=== PATIENT | female | born 1955 | race Caucasian/White ===

== ENCOUNTER 2017-03-02 14:10 | Observation (INO) | payer MEDICAID ==
[~2017-03-02] VITALS: Ht 157.5 cm; Wt 88.6 kg
--- NOTE | ~2017-03-02 | HEMODYNAMI ---
PATIENT:FLORENCIA SCHULTZ MEDICAL RECORD: [id number] : 55 [id number] ADMISSION DATE: 03/02/17 Generatedon:03/03/201715:28 Patient name: FLORENCIA SCHULTZ Patient #: [id number] : 1955 Date of study: 03/03/2017 Page: Of Hemodynamic Procedure Report Patient Data Patient Demographics Procedure consent was obtained First Name: FLORENCIA Gender: Female Last Name: MARION : 1955 Middle Initial: NEGRA Age: 61 year(s) Patient #: [id number] Race: SSN: [id number] Additional ID: [id number] Contact details [address]: [address] [place] [address] State: [place] City: [place] Zip code: [address] Admission Admission Data Admission Date: 03/02/2017 Admission Time: 16:27 Arrival Date: 02/23/2017 Arrival Time: 16:27 Admit Source: Other Insurance Payor: Medicaid Room #: D.2115 Height (in.): 62 BSA: 1.89 (m2) Height (cm.): 157.48 BMI: 35.67 (kg/m2) Weight (lbs.): 195 Weight (kg.): 88.45 Lab Results Lab Result Date: 03/03/2017 Lab Result Time: 0:00 Biochemistry Name Units Result Min Max BUN mg/dl 14 --(--*-)-- 7 18 Creatinine mg/dl 1 --(--*-)-- 0.6 1.3 CBC Name Units Result Min Max Hemoglobin g/dl 11.9 *-(----)-- 13.5 17.5 Procedure Procedure Types Cath Procedure Diagnostic Procedure LHC LHC w/Coronaries Miscellaneous Procedures Moderate Sedation up to 30 minutes Procedure Description Procedure Date Procedure Date: 03/03/2017 Procedure Start Time: 15:10 Procedure End Time: 15:21 Procedure Staff Name Function Yang Matthew RT Scrub Ailin Clarke RN Nurse Hetal Ayala RT Monitor Romeo Barrios MD Performing Physician Procedure Data Cath Procedure Fluoroscopy Diagnostic fluoroscopy Total fluoroscopy Time: 1.2 time: 1.2 min min Diagnostic fluoroscopy Total fluoroscopy dose: 410 dose: 410 mGy mGy Contrast Material Contrast Material Type Amount (ml) Isovue 370 62 Entry Location Entry Primary Successful Side Size Upsize Upsize Entry Closure Succes sful Closure Location (Fr) 1 (Fr) 2 (Fr) Remarks Device Remarks Femoral Right 5 Fr Exoseal artery Estimated blood loss: 5 ml Diagnostic catheters Device Type Used For End Catheter Placement Cordis 5Fr JL 4.0 Left Coronary Catheter (MP) Angiography Cordis 5Fr 3DRC Catheter Right Coronary (MP) Angiography Cordis 5Fr Pigtail LV Angiography Catheter (MP) Procedure Complications No complications Procedure Medications Medication Administration Route Dosage Oxygen NC 2 l/min Lidocaine 2% added to field 20 Heparin Flush Bag added to field 2 bags (1000units/500ml NS) 0.9% NaCl I.V. 100 ml/hr Versed I.V. 1 mg Fentanyl I.V. 50 mcg Versed I.V. 1 mg Fentanyl I.V. 50 mcg Versed I.V. 1 mg Fentanyl I.V. 50 mcg Versed I.V. 1 mg Fentanyl I.V. 50 mcg Hemodynamics Rest BSA: 1.89 (m2) HGB: 11.9 (g/dl) O2 Consumption: Estimated: 174.59 (ml/min) O2 Co nsumption indexed: Estimated:92.38 (ml/min/m) Heart Rate: 64 (bpm) Pressure Samples Time Site Value (mmHg) Purpose Heart Use Rate(bpm) 15:17 LV 194/-7,37 Snapshot 95 Gradients Valve Time Site Site Mean SEP/DFP Peak To Heart Use 1 2 (mmHg) (sec/min) Peak Rate (mmHg) (bpm) Aortic 15:18 LV AO 96 Snapshots Pre Cath Intra NCS Post Cath Vital Signs Time Heart Resp SPO2 etCO2 IG7rfct NIBP (mmHg) Rhythm Pain Sedation Rate (ipm) (%) (mmHg) (mmHg) Status Level (bpm) 14:59:56 64 25 99 0 0 140/78(112) NSR 0 (11) 10(A) , No pain 15:04:10 67 24 96 0 0 124/70(101) NSR 0 (11) 10(A) , No pain 15:09:16 72 17 97 0 0 117/75(105) NSR 0 (11) 9(A) , No pain 15:13:21 88 17 93 0 0 130/93(110) NSR 0 (11) 9(A) , No pain 15:18:50 91 16 96 0 0 117/78(111) NSR 0 (11) 9(A) , No pain 15:27:46 91 17 96 0 0 124/79(0) NSR 0 (11) 10(A) , No pain Medications Time Medication Route Dose Verified Delivered Reason Notes Effe ctiveness by by 15:03:40 Oxygen NC 2 Romeo Buffie used for l/min DenisCordelia Clarke casino floor runner 15:03:48 Lidocaine 2% added 20ml Romeo Romeo for local to vial [facility] anesthetic field MD KRISHNAN 15:03:58 Heparin Flush added 2 Romeo Romeo used for Bag to bags [facility] procedure (1000units/500ml field MD KRISHNAN NS) 15:04:06 0.9% NaCl I.V. 100 Romeo Buffie Per ml/hr St. Cyrus Clarke RN physician 15:04:17 Versed I.V. 1 mg Romeo Buffie for DenisCordelia Clarke RN sedation 15:04:24 Fentanyl I.V. 50 Romeo Buffie for mcg DenisCordelia Clarke RN sedation 15:08:16 Versed I.V. 1 mg Romeo Buffie for DenisCyrus Clarke RN sedation 15:08:21 Fentanyl I.V. 50 Romeo Buffie for mcg GaltCyrus Clarke RN sedation 15:11:07 Versed I.V. 1 mg Romeo Buffie for Denis Clarke RN sedation 15:11:12 Fentanyl I.V. 50 Romeo Buffie for mcg DenisCyrus Clarke RN sedation 15:17:19 Versed I.V. 1 mg Romeo Buffie for DenisCyrus Clarke RN sedation 15:17:24 Fentanyl I.V. 50 Romeo Buffie for mcg GaltCyrus Clarke RN sedation Procedure Log Time Note 14:35:07 Diagnostic Cath Status : Elective 14:35:40 Admit Source: Other 14:35:55 Yang Castro RT(R) (CV) sent for patient. Start room use. 14:39:41 Time tracking: Regular hours 14:39:47 Plan of Care:Hemodynamics will remain stable., Cardiac rhythm will remain stable., Comfort level will be maintained., Respiratory function will remain adequate., Patient/ family verbilizes understanding of procedure., Procedure tolerated without complication., Recovers from procedure without complications.. 14:42:41 Informed consent obtained and on chart 14:43:39 Arrival Date: 02/23/2017 4:27:00 PM 14:43:45 Insurance Payor : Medicaid 14:45:32 Lab Result : Hemoglobin 11.9 g/dl 14:45:32 Lab Result : Creatinine 1 mg/dl 14:45:32 Lab Result : BUN 14 mg/dl 14:48:38 Patient received from Med II to CCL 1 Alert and oriented. Tansferred to table in Supine position. 14:48:39 Warm blankets applied, and tamara hugger turned on for patient comfort. 14:48:40 Correct patient and procedure confirmed by team. 14:48:46 ECG and BP/O2 sat monitors applied to patient. 14:58:45 Vital chart was started 14:58:46 Baseline sample Acquired. 14:58:48 Rhythm: sinus rhythm 14:58:51 Full Disclosure recording started 14:58:55 H&P Date Dictated: 03/03/2017 New H&P dictated by physician.. 14:58:57 Pre-procedure instructions explained to patient. 14:58:57 Pre-op teaching completed and patient verbalized understanding. 14:58:59 Family in waiting room. 14:59:01 Patient NPO since Midnight. 14:59:17 Is the patient allergic to Iodine/contrast media? No. 14:59:18 Was the patient premedicated? No 14:59:20 Is patient on blood thinner?No 14:59:21 Patient diabetic? No. 14:59:24 Previous problem with sedation/anesthesia? No ? 14:59:27 Snore? Yes 14:59:28 Sleep apnea? No 14:59:29 Deviated septum? No 14:59:30 Opens mouth fully? Yes 14:59:30 Sticks out tongue? Yes 14:59:33 Airway obstruction? Yes asthma 14:59:45 Dentures? No ? 14:59:50 Pre procedure: right dorsailis pedis pulse 2+ Normal; easily identifiable; not easily obliterated 14:59:52 Patient pain scale 0/10 ?. 14:59:54 Modified Gianni's test Radial > 7 seconds. 15:00:01 IV patent on arrival in right forearm with 0.9% NaCl at [facility]. 15:00:04 Lab results completed and on chart. 15:00:08 Right groin area was prepped with chlora-prep and draped in sterile fashion 15:00:09 Alarms reviewed by R. N. 15:00:10 Sharps counted by scrub and verified by R.N. 15:00:10 Physician arrived 15:00:11 --------ALL STOP TIME OUT------ 15:00:11 Final Timeout: patient, procedure, and site verified with staff and physician. All members of the team are in agreement. 15:00:13 Right groin site verified by team. 15:03:33 Physical assessment completed. ASA score P 2 - A patient with mild systemic disease as per Romeo Barrios MD. 15:03:40 Oxygen 2 l/min NC was administered by Ailin Clarke RN; used for procedure; 15:03:44 Sedation plan: IV Moderate Sedation Versed, Fentanyl 15:03:48 Lidocaine 2% 20ml vial added to field was administered by Romeo Barrios MD; for local anesthetic; 15:03:58 Heparin Flush Bag (1000units/500ml NS) 2 bags added to field was administered by Romeo Barrios MD; used for procedure; 15:04:06 0.9% NaCl 100 ml/hr I.V. was administered by Ailin Clarke RN; Per physician; 15:04:16 Use device set Femoral Dx 15:04:17 Versed 1 mg I.V. was administered by Ailin Clarke RN; for sedation; 15:04:18 Acist Syringe opened to sterile field. 15:04:18 Bag Decanter opened to sterile field. 15:04:18 Medline Cath Pack opened to sterile field. 15:04:19 Terumo 5Fr Bishop Sheath opened to sterile field. 15:04:19 St Dominic 260cm J .035 wire opened to sterile field. 15:04:20 Acist Hand Control opened to sterile field. 15:04:21 Acist Manifold opened to sterile field. 15:04:21 Diagnostic Infinity 5Fr Multipack catheter opened to sterile field. 15:04:21 Tegaderm 4 x 4 opened to sterile field. 15:04:24 Fentanyl 50 mcg I.V. was administered by Ailin Clarke RN; for sedation; 15:08:16 Versed 1 mg I.V. was administered by Ailin Clarke RN; for sedation; 15:08:21 Fentanyl 50 mcg I.V. was administered by Ailin Clarke RN; for sedation; 15:09:05 Zero performed for pressure channel P1 15:10:01 Procedure started. 15:10:05 Local anesthetic to right femoral artery with Lidocaine 2% by Yang HERNANDEZ(R) (CV).INITIAL ACCESS ONLY 15:10:19 A 5 Fr sheath was inserted into the Right Femoral artery 15:10:51 A Cordis 5Fr JL 4.0 Catheter (MP) was advanced over the wire and used for Left Coronary Angiography. 15:11:07 Versed 1 mg I.V. was administered by Ailin Clarke RN; for sedation; 15:11:12 Fentanyl 50 mcg I.V. was administered by Ailin Clarke RN; for sedation; 15:11:14 LCA angiography performed. 15:11:18 Injector settings: Ml/sec: 3, Volume: 6, 15:13:17 Catheter removed. 15:13:22 A Cordis 5Fr 3DRC Catheter (MP) was advanced over the wire and used for Right Coronary Angiography. 15:14:01 RCA angiography performed. 15:14:05 Injector settings: Ml/sec: 3, Volume: 6, 15:15:41 Catheter removed. 15:15:46 A Cordis 5Fr Pigtail Catheter (MP) was advanced over the wire and used for LV Angiography. 15:17:17 LV hemodynamics recorded. 15:17:19 Versed 1 mg I.V. was administered by Ailin Clarke RN; for sedation; 15:17:19 LV gram done using NICHOLS 15:17:24 Fentanyl 50 mcg I.V. was administered by Ailin Clarke RN; for sedation; 15:17:24 Injector settings: Ml/sec: 5, Volume: 15, 15:17:47 EF : 55 % 15:18:38 Catheter removed. 15:18:46 Cordis 5Fr Exoseal opened to sterile field. 15:19:01 Sheath removed intact; hemostasis achieved with Exoseal to the Right Femoral artery. 15:19:28 Procedure ended.(Physican Out) 15:19:54 Fluoroscopy time 01.20 minutes. 15:20:02 Flurop Dose total: 410 15:20:02 Fluoroscopy dose: 410 mGy 15:20:12 Contrast amount:Isovue 370 62ml. 15:20:15 Sharps counted by scrub and verified by R.N. 15:20:17 Insertion/operative site no bleeding no hematoma. 15:20:22 Post-op/insertion site Right Femoral artery dressed using a 4 x 4 and Tegaderm. 15:20:25 Post right femoral artery:stable 15:20:28 Post Procedure Pulses reassessed and unchanged 15:20:31 Post procedure rhythm: unchanged. 15:20:35 Estimated blood loss: 5 ml 15:20:39 Post procedure instruction explained to patient.Patient verbalizes understanding. 15:20:40 Patient needs reinforcement of post procedure teaching. 15:20:55 Procedure type changed to Cath procedure, Diagnostic procedure, LHC, LHC w/Coronaries, Miscellaneous Procedures, Moderate Sedation up to 30 minutes 15:20:57 Procedure and supply charges have been captured, reviewed, submitted and are correct. 15:21:03 Procedure Complication : No complications 15:21:06 Vital chart was stopped 15:21:07 See physician's report for complete and final results. 15:21:14 Report given to [facility]. 15:21:16 Patient transfered to [facility] with Stretcher. 15:21:19 Procedure ended. 15:21:19 Full Disclosure recording stopped 15:21:29 End room use (Document Last) 15:22:49 Patient Height : 62 cm 15:23:01 Patient Weight : 195 kg Device Usage Item Name Manufacture Quantity Catalog Hospital Part Current Minimal Lo t# / Number Charge Number Stock Stock Serial# Code Acist Acist 1 65794 839136 117745 811321 20 Syringe Medical Systems Inc Bag Microtek 1 2002S 132110 46809 369019 5 Decanter Medical Inc. Medline Cardinal 1 [id number] 431500 61044 793593 5 Cath Pack Health Terumo 5Fr Terumo 1 [id number] 917775 896491 348285 [address] St Dominic 1 524118 381263 034843 311187 30 260cm J .035 wire Acist Hand Acist 1 58486 367762 016435 020234 5 Control Medical Systems Inc Acist Acist 1 50842 179158 872998 956095 5 Manifold Medical Systems Inc Diagnostic Cardinal 1 [id number] 651270 22726 021251 30 Infinity Health 5Fr Multipack catheter Tegaderm 4 3M 1 1626W 842546 174011 368927 5 x 4 Cordis 5Fr Cardinal 1 641516 5 JL 4.0 Health Catheter (MP) Cordis 5Fr Cardinal 1 675375 5 3DRC Health Catheter (MP) Cordis 5Fr Cardinal 1 642612 5 Pigtail Health Catheter (MP) Cordis 5Fr Cardinal 1 EX500 017452 700544 227040 10 Cool Containers Signature Audit [place] Stage Time Signature Unsigned Intra-Procedure 03/03/2017 Hetal Ayala 3:28:28 PM RT(R) Signatures Monitor : Hetal Ayala RT Signature : Date : Time : [place] [id number] [place] [address]
--- NOTE | ~2017-03-02 | OP ---
PATIENT NAME: FLORENCIA SCHULTZ MEDICAL RECORD: [id number] :55 LOCATION:D.M2 D.2115 ADMISSION DATE:03/02/17 SURGEON: AUNDREA FRIEND MD DATE OF OPERATION: 03/03/2017 PROCEDURES: Left heart catheterization, selective coronary angiography, right femoral artery approach. CATHETERS: A 5-Arabic sheath, 5/4 left and right Peter, 5/4 pig. The procedure was well tolerated. The patient returned to the yañez, sheath removed. ExoSeal device placed. FINDINGS: Left ventriculography in the 30-degree NICHOLS view: Normal wall motion, normal systolic function. CORONARY ANATOMY: Left main: Left main is free of disease. LAD: Free of disease in the diagonal system. CIRCUMFLEX: Left dominant system, PDA rise from the circumflex, free of disease. RIGHT CORONARY ARTERY: Rudimentary free of disease. IMPRESSION: Normal systolic function. Normal coronary anatomy. TRANSINT:[id number] Voice Confirmation ID: [id number] DOCUMENT ID: [id number] AUNDREA FRIEND MD CC: [id number] DICTATION DATE: 03/03/17 152 PIECE MEAT TRIMMER: 03/03/172205 DIS IN 03/03/17 [facility] [address] [place] [address]
[2017-03-02 15:27] LABS: BASOPHILS 0.2 % (0-2); EOSINOPHILS 0.6 % (0-7); HEMATOCRIT 39.1 % (36.0-48.0); HEMOGLOBIN 12.6 g/dL (12-16); IMMATURE GRANULOCYTES 0.3 % (0-5); LYMPHOCYTES 30.4 % (15-50); MCH 30.2 pg (26.0-34.0); MCHC 32.2 g/dL (31.0-37.0); MCV 93.8 fL (80.0-100.0); MONOCYTES 5.8 % (2-11); NEUTROPHILS 62.7 % (40-80); RBC 4.17 10x6/uL (4.00-5.40); RDW 13.9 % (11.5-14.5); WBC 11.1 10x3/uL (4.8-10.8)
[2017-03-02 15:36] LABS: PLATELET COUNT 292 10x3/uL (130-400)
[2017-03-02 15:48] LABS: ALBUMIN 2.8 g/dL (3.4-5.0); ALKALINE PHOSPHATASE 60 U/L (46-116); ALT (SGPT) 37 U/L (10-68); CALC OSMOLALITY 279 mosm/kg (275-300); CALCIUM 8.6 mg/dL (8.5-10.1); CHLORIDE - SERUM 105 mmol/L (98-107); GLUCOSE 97 mg/dL (74-106); POTASSIUM - SERUM 4.1 mmol/L (3.5-5.1); PROTEIN - SERUM 7.2 g/dL (6.4-8.2); SODIUM 140 mmol/L (136-145); UREA NITROGEN 14 mg/dL (7-18); eGFR NON AFRICAN AMERICAN 60 mL/min (90-120)
[2017-03-02 15:58] LABS: CHOL - HDL RATIO 2.8 ratio (2.3-4.1); CHOLESTEROL, TOTAL 195 mg/dL (0-200); CKMB 1.8 U/L (0.0-3.6); CREATINE KINASE 112 UL (21-215); HDL CHOLESTEROL 69 mg/dL (32-96); LDL CHOLESTEROL 94 mg/dL (0-100); LDL-HDL RATIO 1.4 ratio (1.5-3.5); TRIGLYCERIDE 164 mg/dL (30-200)
[2017-03-02 16:03] LABS: TROPONIN-I < 0.017 ng/mL (0.000-0.060)
[2017-03-02 17:49] LABS: CREATINE KINASE 110 UL (21-215)
[2017-03-02 17:50] LABS: TROPONIN-I < 0.017 ng/mL (0.000-0.060)
--- NOTE | 2017-03-02 18:42 | NUR ---
ARRIVE TO ROOM VIA WHEELCHAIR FROM ER. NO REPORT CALLED FROM ER. TRY CALLING STRATEGIES ANALYST AND ER. NO ANSWER. ALERT AND ORIENTED X4. RT AC IV 20G SL. DENIES SOB. O2 @ 2L NC. DENIES PAIN. PASS ADMISSION PROCESS TO WEEKDAY BABYSITTER. BED LOCKED AND LOW. CALL LIGHT IN REACH. TWO SIDERAILS UP.
[2017-03-02] MEDS ORDERED: EFFEXOR XR75 MG PO (18:48)
[2017-03-02] MEDS ORDERED: RELAFEN500 MG PO (18:50)
[2017-03-02] MEDS ORDERED: REMERON15 MG PO (18:51)
[2017-03-02] MEDS ORDERED: LIPITOR20 MG PO (18:52)
[2017-03-02] MEDS ORDERED: TRAZODONE HCL50 MG PO (18:52)
[2017-03-02] MEDS ORDERED: ZESTRIL40 MG PO (18:53)
[2017-03-02] MEDS ORDERED: HYDROCHLOROTHIA25 MG PO (18:54)
--- NOTE | 2017-03-02 19:00 | NUR ---
INITIAL ROUNDS MADE. PT SITTING UP IN BED WITH FAMILY IN ROOM. PT EXPRESSING THE DESIRE TO GO HOME. ENCOURAGED PT TO STAY FOR FURTHER WORK UP AND CATH TOMORROW AFTERNOON. PT AGREEABLE. CALLED [facility] FOR CURRENT HOME MEDS FOR MED REC UPDATE. PT DENIES CP OR SOB AT THIS TIME. WILL CONT TO MONITOR.
[2017-03-02] MEDS ORDERED: PREMPRO 0.625/21 TA1 PO (19:13)
[2017-03-02] MEDS ORDERED: FLUTICASONE PRO16 GM NASAL (19:14)
[2017-03-02] MEDS ORDERED: FLOVENT HFA 22012 GM INH (19:14)
[2017-03-02] MEDS ORDERED: PROAIR HFA8.5 GM INH (19:14)
[2017-03-02 20:00] VITALS: BP 134/63
[2017-03-02 23:51] LABS: CKMB 1.3 U/L (0.0-3.6); CREATINE KINASE 110 UL (21-215)
[2017-03-02 23:52] LABS: TROPONIN-I < 0.017 ng/mL (0.000-0.060)
[2017-03-03] VITALS: BP 126/55
--- NOTE | 2017-03-03 00:02 | NUR ---
DRINKING WATER TECHNICIAN AT BEDSIDE FOR VS. NEEDS ADDRESSED. CALL LIGHT IN REACH. WILL CONT TO MONITOR.
[2017-03-03 02:02] VITALS: BP 134/63; Ht 157.5 cm; Wt 88.6 kg
[2017-03-03 04:00] VITALS: BP 112/66
[2017-03-03 06:23] LABS: CKMB 0.8 U/L (0.0-3.6); CREATINE KINASE 77 UL (21-215); TROPONIN-I < 0.017 ng/mL (0.000-0.060)
[2017-03-03 07:48] LABS: BASOPHILS 0.2 % (0-2); HEMATOCRIT 36.5 % (36.0-48.0); HEMOGLOBIN 11.9 g/dL (12-16); IMMATURE GRANULOCYTES 0.2 % (0-5); LYMPHOCYTES 33.5 % (15-50); MCH 30.4 pg (26.0-34.0); MCHC 32.6 g/dL (31.0-37.0); MCV 93.4 fL (80.0-100.0); MEAN PLATELET VOLUME 11.1 fL (7.4-10.4); MONOCYTES 4.9 % (2-11); NEUTROPHILS 60.2 % (40-80); PLATELET COUNT 294 10x3/uL (130-400); RBC 3.91 10x6/uL (4.00-5.40); RDW 13.9 % (11.5-14.5); WBC 10.4 10x3/uL (4.8-10.8)
[2017-03-03 07:51] LABS: ANION GAP 15.6 mmol/L (8-16); CALCIUM 8.5 mg/dL (8.5-10.1); CARBON DIOXIDE 24.6 mmol/L (21.0-32.0); CREATININE - SERUM 1.1 mg/dL (0.6-1.3); POTASSIUM - SERUM 4.2 mmol/L (3.5-5.1)
[2017-03-03 07:57] VITALS: BP 154/70
[2017-03-03 12:14] VITALS: BP 129/66
--- NOTE | 2017-03-03 14:45 | NUR ---
PRE-OPS GIVEN. TO PURCHASING INTERNSHIP BY BED.
--- NOTE | 2017-03-03 15:53 | NUR ---
BACK FROM STITCH WELDER. VS WNL. RIGHT GROIN STABLE WITHOUT BLEEDING OR HEMATOMA NOTED. WILL MONITOR.
--- NOTE | 2017-03-03 17:54 | NUR ---
BED REST UP. GROIN STABLE.
--- NOTE | 2017-03-03 18:46 | NUR ---
IV AND TELEMETRY DCD. RIGHT GROIN STABLE. DC PLANS GIVEN. UNDERSTANDING VOICED. ESCORTED TO CAR BY W/C.
== END 2017-03-03 18:48 | disposition home or self-care (01) ==
LOC: D.ER 14:10 → OBSVTIME 16:27 → D.M2 16:27
PROVIDERS: Emergency Medicine; Internal Medicine Cardiovascular Disease; ADMIT Family Medicine
DX: R07.9 Chest pain, unspecified (principal); I10 Essential (primary) hypertension; E78.5 Hyperlipidemia, unspecified; J44.9 Chronic obstructive pulmonary disease, unspecified

== ENCOUNTER → 2017-07-20 18:24 | Outpatient (CLI) | payer MEDICAID ==
[2017-03-03 02:02] VITALS: BMI 35.7
[~2017-07-20 18:24] MED LIST: EFFEXOR XR75 MG PO; FLOVENT HFA 22012 GM INH; FLUTICASONE PRO16 GM NASAL; HYDROCHLOROTHIA25 MG PO; LIPITOR20 MG PO; PREMPRO 0.625/21 TA1 PO; PROAIR HFA8.5 GM INH; RELAFEN500 MG PO; REMERON15 MG PO; TRAZODONE HCL50 MG PO; ZESTRIL40 MG PO
[2017-07-20 19:24] LABS: BASOPHILS 0.2 % (0-2); EOSINOPHILS 0.9 % (0-7); HEMOGLOBIN 13.3 g/dL (12-16); IMMATURE GRANULOCYTES 0.2 % (0-5); LYMPHOCYTES 30.2 % (15-50); MCH 30.4 pg (26.0-34.0); MCHC 32.4 g/dL (31.0-37.0); MCV 93.8 fL (80.0-100.0); MEAN PLATELET VOLUME 11.7 fL (7.4-10.4); MONOCYTES 4.8 % (2-11); NEUTROPHILS 63.7 % (40-80); PLATELET COUNT 325 10x3/uL (130-400); RBC 4.37 10x6/uL (4.00-5.40); RDW 13.1 % (11.5-14.5); WBC 9.1 10x3/uL (4.8-10.8)
[2017-07-20 19:46] LABS: ALBUMIN 3.4 g/dL (3.4-5.0); ANION GAP 16.1 mmol/L (8-16); BILIRUBIN - TOTAL 0.6 mg/dL (0.2-1.3); CARBON DIOXIDE 25.3 mmol/L (21.0-32.0); CHOL - HDL RATIO 3.3 ratio (2.3-4.1); CREATININE - SERUM 1.1 mg/dL (0.6-1.3); LDL-HDL RATIO 1.8 ratio (1.5-3.5); POTASSIUM - SERUM 4.4 mmol/L (3.5-5.1); PROTEIN - SERUM 7.4 g/dL (6.4-8.2); T4 THYROXIN - FREE 1.36 ng/dL (0.76-1.46); THYROID STIMULATING HORMONE 2.42 uIU/mL (0.36-3.74)
== END | disposition home or self-care (01) ==
LOC: D.LABREF 18:24
PROVIDERS: Family Medicine
DX: E78.4 Other hyperlipidemia (principal); Z79.890 Hormone replacement therapy

== ENCOUNTER → 2017-09-01 14:49 | Outpatient (CLI) | payer MEDICAID ==
[2017-03-03 02:02] VITALS: BMI 35.7
[~2017-09-01 14:49] MED LIST changes: +ABILIFY2 MG PO; +DESERYL100 MG PO; +EFFEXOR XR150 MG PO; +TYLENOL W/CODEI1 TAB PO
== END | disposition home or self-care (01) ==
LOC: D.MRI 14:49
DX: D49.6 Neoplasm of unspecified behavior of brain (principal)

== ENCOUNTER 2017-09-11 07:00 | Day surgery (SDC) | payer MEDICAID ==
[2017-09-10 13:37] LABS: HEMATOCRIT 38.7 % (36.0-48.0); HEMOGLOBIN 12.7 g/dL (12-16); MCH 29.7 pg (26.0-34.0); MCHC 32.8 g/dL (31.0-37.0); MCV 90.4 fL (80.0-100.0); MEAN PLATELET VOLUME 11.1 fL (7.4-10.4); RBC 4.28 10x6/uL (4.00-5.40); RDW 13.3 % (11.5-14.5); WBC 10.1 10x3/uL (4.8-10.8)
[2017-09-10 13:55] LABS: ANION GAP 13.4 mmol/L (8-16); CARBON DIOXIDE 26.3 mmol/L (21.0-32.0); CREATININE - SERUM 1.4 mg/dL (0.6-1.3); POTASSIUM - SERUM 3.7 mmol/L (3.5-5.1)
[2017-09-11 07:57] VITALS: BP 116/68
--- NOTE | 2017-09-11 16:31 | NUR ---
1515 IV DC WITH CATHER TIP INTACT
--- NOTE | 2017-09-15 10:55 | OP ---
PATIENT NAME: FLORENCIA SCHULTZ MEDICAL RECORD: [id number] :55 LOCATION:GENO ADMISSION DATE: SURGEON: JAJA COOPER MD DATE OF OPERATION: 09/11/2017 PREOPERATIVE DIAGNOSES: Lumbar spinal stenosis with foraminal stenosis at L5-S1, right. POSTOPERATIVE DIAGNOSES: Lumbar spinal stenosis with foraminal stenosis at L5-S1, right. PROCEDURES: Lumbar laminotomy, medial facetectomy and foraminotomy at L5-S1 on the right with decompression of L5 and S1 nerve roots with METRx retractor and microscopic illumination. DESCRIPTION OF TECHNIQUE: After induction of general endotracheal anesthesia, the patient was rolled prone on a Kvng frame. Lumbar spine was prepped and draped in usual sterile fashion. Fluoroscopic x-ray and spinal needle localized the L5-S1 interspace on the right side. A stab incision was created with #11 blade and series of dilators was used to advance the METRx retractor to the L5-S1 interspace on the right side. A microscope and Midas Javid drill were used to perform laminotomy, medial facetectomy and foraminotomy at L5-S1 on the right. Hypertrophied ligamentum flavum was removed with Cloward rongeurs. A medial facetectomy was carried out with Midas Javid drill. The right S1 nerve root was decompressed in the lateral recess and then the L5 nerve root was decompressed and the foramina at L5-S1 with Cloward rongeurs. Meticulous hemostasis was maintained throughout the wound. Wound was irrigated with copious amounts of Ancef irrigant solution. The fascia was closed with a 2-0 Vicryl suture. The subdermal layer was closed with 3-0 Vicryl suture. The skin was closed with cristela. A sterile dressing was applied to the wound. The patient was awakened in good condition and taken to recovery. All counts were reported as correct. Estimated blood loss was minimal. TRANSINT:[id number] Voice Confirmation ID: [id number] DOCUMENT ID: [id number] JAJA COOPER MD at 1055 CC: [id number] DICTATION DATE: 09/11/17 1407 CLEAN RICE GRADER AND REEL TENDER: 09/11/17 1459 [facility] 09/11/17 [place] [address]
== END 2017-09-11 15:30 | disposition home or self-care (01) ==
LOC: D.OPS 07:00 → D.PAN 08:00 → D.OPS 09:30
PROVIDERS: Anesthesiology
DX: M54.16 Radiculopathy, lumbar region (principal); I10 Essential (primary) hypertension; R41.3 Other amnesia; E66.9 Obesity, unspecified; M54.5 Low back pain; Z01.812 Encounter for preprocedural laboratory examination

== ENCOUNTER 2018-05-19 08:00 | Outpatient (CLI) | payer MEDICAID | END 2018-05-19 09:00 | disposition home or self-care (01) | LOC: D.MAMMO 08:00 | DX: Z12.31 Encounter for screening mammogram for malignant neoplasm of breast (principal) ==

== ENCOUNTER 2018-09-22 16:22 | Inpatient (IN) | payer MEDICARE ==
[~2018-09-22] VITALS: Ht 177.8 cm; Wt 86.2 kg
--- NOTE | ~2018-09-22 | MORECARE ---
CASE MANAGEMENT DISCHARGE SUMMARY PATIENT: FLORENCIA SCHULTZ UNIT: [id number] ADM DATE: 09/23/18 AGE: 63 : 55 SEX: F ROOM/BED: D.0698 AUTHOR: PATY,DOC PHYSICIAN: REFERRING PHYSICIAN: DELBERT WATERMAN MD DATE OF SERVICE: 09/24/18 Discharge Plan Patient Name: FLORENCIA SCHULTZ Facility: [facility]:[place] : 1955 Planned Disposition: Home Anticipated Discharge Date: 09/24/18 Discharge Date: 09/24/2018 Expected LOS: 1 Initial Reviewer: [email or web address] Initial Review Date: 09/22/2018 Generated: 09/24/18 6:22 pm Comments DCP- Discharge Planning Updated by [email or web address]: Abhinav Kraus on 09/24/18 4:[address] Patient Name: FLORENCIA SCHULTZ Admission Status: Urgent Accout number: [id number] Admission Date: 09-23-2018 : 1955 Admission Diagnosis:PNEUMONIA, UNSPECIFIED ORGANISM Attending: COLUMBA, Current LOS: 1 Anticipated DC Date: 09-24-2018 Planned Disposition: Home Primary Insurance: [employer] Discharge Planning Comments: CM MET WITH PT AND SPOUSE IN ROOM TO DISCUSS DISCHARGE PLANNING AND NEEDS. FLORENCIA SCHULTZ provided verbal consent to discuss current and ongoing needs with/in the presence of: SPOUSE, RAJAN. PT REPORTS LIVING AT HOME INDEPENDENTLY WITH HER SPOUSE. PT HAS NO MEDICAL EQUIPMENT AND NO OUTSIDE SERVICES ASSISTING IN THE HOME. CM DISCUSSED AVAILABILITY OF HOME HEALTH, REHAB SERVICES AND MEDICAL EQUIPMENT. PT DENIES DISCHARGE NEEDS, REPORTS HER SON WILL PICK HER UP FOR DISCHARGE HOME. Senior Account Manager: Abhinav Kraus DCPIA - Discharge Planning Initial Assessment Updated by [id number]: Abhinav Kraus on 09/24/18 5:17 pm * Is the patient Alert and Oriented? Yes * How many steps to enter\exit or inside your home? NONE * PCP DR. WATERMAN * Pharmacy [facility] * Preadmission Environment Home with Family * ADLs Independent * Equipment None * Other Equipment NO MEDICAL EQUIPMENT PROVIDER PREFERENCE * List name and contact numbers for known caregivers / representatives who currently or will assist patient after discharge: RAJAN SCHULTZ, SPOUSE, * Verbal permission to speak to the caregivers and representatives has been obtained from the patient. Yes * Community resources currently utilized None * Please name any agencies selected above. NONE * Additional services required to return to the preadmission environment? No * Can the patient safely return to the preadmission environment? Yes * Has this patient been hospitalized within the prior 30 days at any hospital? No Last DP export: 09/22/18 3:58 Patient Name: FLORENCIA SCHULTZ Page [id number] at 1722 All edits/amendments must be made on the electronic document DICTATION DATE: 09/24/181721 COMMERCIAL ENERGY AUDITOR: SYLVIA 09/24/181721 RPT#: [id number] DC DATE:09/24/18 STATUS: DIS IN [facility] [address] [place] [address] END OF REPORT
--- NOTE | ~2018-09-22 | CN ---
PATIENT NAME:FLORENCIA FREGOSO MEDICAL RECORD: [id number] : 55 LOCATION:D. D.2125 ADMIT DATE: 09/23/18 ACCOUNT: [id number] CONSULTING PHYSICIAN: ASHLEE SANDRA MD REFERRING PHYSICIAN: DELBERT WATERMAN MD DATE OF CONSULTATION: 09/23/2018 CONSULT REQUESTING PHYSICIAN: Flaco Dao MD REASON FOR CONSULTATION: Questionable pneumonia. HISTORY OF PRESENT ILLNESS: Ms. Fregoso is a 63-year-old female, who is sick for the last couple of days. She was seen at Dr. Waterman's office initially, she was given doxycycline and Rocephin injection. Then, Augmentin was added, but the patient was seen for the third time, still coughing with leukocytosis of 14,000 and having some chest pain. REVIEW OF SYSTEMS: As in history of present illness. PAST MEDICAL HISTORY: 1. Hypertension. 2. Osteoarthritis. 3. Insomnia. 4. Anxiety and depression. 5. Chronic backache. PAST SURGICAL HISTORY: 1. Lumbar discectomy. 2. Carpal tunnel surgery. 3. times 3. ALLERGIES: SHE IS ALLERGIC TO POSSIBLE IBUPROFEN. MEDICATIONS: [employer] is reviewed. PERSONAL AND SOCIAL HISTORY: She is nonsmoker, nondrinker. FAMILY HISTORY: Father has Alzheimer disease. PHYSICAL EXAMINATION: GENERAL: Now, the patient is lying comfortably in bed. She is not in acute distress. VITAL SIGNS: The blood pressure is 116/52, pulse is 53, respiration is 18, temperature 98, and SpO2 is 95% on room air. HEENT: Conjunctivae are pink. Sclerae are not icteric. NECK: Supple, no JVD. CHEST: Excursion is minimal on both sides. There is no wheeze, no rales. HEART: Rhythm regular, normal sound, no murmur. ABDOMEN: Soft, bowel sounds present. No hepatosplenomegaly. RECTAL: Deferred. EXTREMITIES: No cyanosis, no clubbing, no pedal edema. SKIN: Warm, normal turgor. CENTRAL NERVOUS SYSTEM: The patient is awake and alert. There are no obvious skin abnormality. The gait was not tested. CONSULT REPORT [id number] FLORENCIA FREGOSO CHEST RADIOGRAPH: There is no acute infiltrate. LABORATORY DATA: CBC: WBC 14,000. The D-dimer is 0.43. IMPRESSION: 1. Acute cough. 2. Tracheobronchitis. 3. Chest pain, most likely secondary to cough, musculoskeletal in origin. 4. Leukocytosis. 5. History of hypertension. RECOMMENDATION: 1. Continue empiric Levaquin. 2. Discontinue Mucinex. Start on Mucinex DM 2 tablets per oral b.i.d., Tessalon Perles 100 mg b.i.d. 3. Repeat the chest radiograph and labs in the morning. Dr. Dao, thank you for involving me in the care of Ms. Fregoso. TRANSINT:[id number] Voice Confirmation ID: [id number] DOCUMENT ID: [id number] ASHLEE SANDRA MD at 1711 CC: [id number] DICTATION DATE: 09/23/181627 WORK COUNSELOR: 09/23/182034 DIS IN 09/24/18 [facility] [address] [place] [address]
--- NOTE | ~2018-09-22 | HP ---
PATIENT: FLORENCIA SCHULTZ MEDICAL RECORD: [id number] ACCOUNT: [id number] LOCATION:[address] : 55 ADMISSION DATE: 09/23/18 PCP: DELBERT WATERMAN MD HISTORY AND PHYSICAL EXAMINATION CHIEF COMPLAINT: Cough. HISTORY OF PRESENT ILLNESS: A 63-year-old white female patient of mine presents today in clinic for the third time, complaining of cough, shortness of breath, fatigue and generally not feeling well. She saw the nurse practitioner last week, had a white count at the time of 14,000, was put on doxycycline. Few days later, she saw me, white count had jumped up to 17,000, so I added Augmentin. Chest x-ray at both times was clear, no focal pneumonia, slight cardiomegaly. Then, today, she is seen back about 4 or 5 days later, still reports not feeling better, had her labs drawn yesterday and white count still 15,000. Still complaining of cough, shortness of breath, and fatigue, so at this time, we will admit to the hospital for further workup. PAST MEDICAL HISTORY: Hypertension, osteoarthritis, insomnia, depression, low back pain, and anxiety. PAST SURGICAL HISTORY: Lumbar discectomy, carpal tunnel surgery, and times 3. MEDICATIONS: Aspirin 81 mg a day, atorvastatin 20 mg a day, Augmentin 875 b.i.d., cetirizine 10 mg a day, doxycycline 100 mg b.i.d., Effexor 225 mg a day, Flonase as needed, hydrochlorothiazide 25 mg a day, hydroxyzine 50 mg p.r.n., lisinopril 40 mg a day, mirtazapine 30 mg at night, nabumetone 500 mg t.i.d. p.r.n., Phenergan cough syrup, Trazodone 100 mg at night, and Voltaren gel. ALLERGIES: No known drug allergies. SOCIAL HISTORY: The patient is retired and lives at home with her , nonsmoker. FAMILY HISTORY: Father with Alzheimer disease and mother with congestive heart failure, hypertension, and diabetes. REVIEW OF SYSTEMS: As per HPI. PHYSICAL EXAMINATION: GENERAL: In no acute distress. HEENT: Normocephalic, atraumatic. NECK: Supple. LUNGS: Clear to auscultation bilaterally, but decreased bilaterally. CARDIOVASCULAR: Regular rate and rhythm, no murmur. MUSCULOSKELETAL: Pain in back with flexion and extension. NEUROLOGIC: Awake, alert, oriented times 3. ASSESSMENT: Pneumonia. PLAN: We will admit the patient to the hospital, start on IV antibiotics. Consult pulmonology. Culture blood and sputum, and repeat chest x-ray. Other orders as written on chart. HISTORY AND PHYSICAL [id number] MARIONFLORENCIA OMER TRANSINT:[id number] Voice Confirmation ID: [id number] DOCUMENT ID: [id number] DELBERT WATERMAN MD at 1851 CC: [id number] DICTATION DATE: 09/22/18 1526 HORTICULTURE INSTRUCTOR: 09/22/18 1549 DIS IN 09/24/18 [id number] [place] [address]
[2018-09-22 17:04] VITALS: BP 128/77; BMI 27.3
[2018-09-22] MEDS ORDERED: RELAFEN500 MG PO (17:08)
[2018-09-22 17:57] LABS: BASOPHILS 0.3 % (0-2); EOSINOPHILS 0.5 % (0-7); HEMATOCRIT 37.7 % (36.0-48.0); HEMOGLOBIN 12.4 g/dL (12-16); IMMATURE GRANULOCYTES 0.3 % (0-5); LYMPHOCYTES 24.9 % (15-50); MCH 30.1 pg (26.0-34.0); MCHC 32.9 g/dL (31.0-37.0); MCV 91.5 fL (80.0-100.0); MEAN PLATELET VOLUME 11.1 fL (7.4-10.4); MONOCYTES 5.4 % (2-11); NEUTROPHILS 68.6 % (40-80); PLATELET COUNT 307 10x3/uL (130-400); RBC 4.12 10x6/uL (4.00-5.40); RDW 13.9 % (11.5-14.5); WBC 14.9 10x3/uL (4.8-10.8)
[2018-09-22 18:07] LABS: BILIRUBIN - TOTAL 0.49 mg/dL (0.2-1.3); C-REACTIVE PROTEIN 1.1 mg/dL (0.0-0.9); CALCIUM 8.8 mg/dL (8.5-10.1); CARBON DIOXIDE 29.2 mmol/L (21.0-32.0); CREATININE - SERUM 1.3 mg/dL (0.6-1.3); POTASSIUM - SERUM 4.2 mmol/L (3.5-5.1); PROTEIN - SERUM 6.9 g/dL (6.4-8.2)
[2018-09-23 04:00] VITALS: BP 116/52
[2018-09-23 05:36] LABS: BASOPHILS 0.2 % (0-2); EOSINOPHILS 0.7 % (0-7); HEMATOCRIT 35.2 % (36.0-48.0); HEMOGLOBIN 11.6 g/dL (12-16); IMMATURE GRANULOCYTES 0.3 % (0-5); LYMPHOCYTES 34.6 % (15-50); MCH 30.1 pg (26.0-34.0); MCV 91.2 fL (80.0-100.0); MEAN PLATELET VOLUME 11.1 fL (7.4-10.4); MONOCYTES 7.2 % (2-11); PLATELET COUNT 281 10x3/uL (130-400); RBC 3.86 10x6/uL (4.00-5.40)
[2018-09-23 06:08] LABS: ALBUMIN 2.6 g/dL (3.4-5.0); ANION GAP 12.3 mmol/L (8-16); BILIRUBIN - TOTAL 0.43 mg/dL (0.2-1.3); CALCIUM 8.5 mg/dL (8.5-10.1); CARBON DIOXIDE 25.9 mmol/L (21.0-32.0); POTASSIUM - SERUM 4.2 mmol/L (3.5-5.1); PROTEIN - SERUM 6.7 g/dL (6.4-8.2)
[2018-09-23 06:12] LABS: WBC 11.1 10x3/uL (4.8-10.8)
[2018-09-23 08:22] VITALS: BP 130/65
[2018-09-23 13:02] VITALS: Ht 177.8 cm; Wt 86.2 kg
[2018-09-23 13:18] VITALS: BP 133/64
[2018-09-23 17:13] VITALS: BP 132/67
[2018-09-23 20:00] VITALS: BP 130/67
[2018-09-24] VITALS: BP 104/41
[2018-09-24 04:00] VITALS: BP 118/58
[2018-09-24 05:15] LABS: BASOPHILS 0.4 % (0-2); EOSINOPHILS 0.9 % (0-7); HEMATOCRIT 34.9 % (36.0-48.0); IMMATURE GRANULOCYTES 0.3 % (0-5); LYMPHOCYTES 37.4 % (15-50); MCH 29.1 pg (26.0-34.0); MCHC 31.5 g/dL (31.0-37.0); MCV 92.3 fL (80.0-100.0); PLATELET COUNT 260 10x3/uL (130-400); RBC 3.78 10x6/uL (4.00-5.40)
[2018-09-24 05:29] LABS: ANION GAP 10.9 mmol/L (8-16); CALCIUM 8.8 mg/dL (8.5-10.1); CARBON DIOXIDE 26.4 mmol/L (21.0-32.0); CREATININE - SERUM 1.1 mg/dL (0.6-1.3); POTASSIUM - SERUM 4.3 mmol/L (3.5-5.1)
[2018-09-24 09:39] VITALS: BP 135/57
[2018-09-24 11:34] VITALS: BP 129/61
[2018-09-24] MEDS ORDERED: LEVAQUIN750 MG PO (13:05)
[2018-09-24 14:54] VITALS: BP 100/50
== END 2018-09-24 15:26 | disposition home or self-care (01) | DRG 202 ==
LOC: D.SDCHOLD 16:22 → D.M2 16:22 → OBSVTIME 16:24 → D.M2 16:34
PROVIDERS: Family Medicine; Internal Medicine Pulmonary Disease
DX: J40 Bronchitis, not specified as acute or chronic (principal); J18.9 Pneumonia, unspecified organism; I10 Essential (primary) hypertension; F41.9 Anxiety disorder, unspecified; M19.90 Unspecified osteoarthritis, unspecified site; G47.00 Insomnia, unspecified; F32.9 Major depressive disorder, single episode, unspecified